=== PATIENT | female | born 1995 | race Caucasian/White ===

== ENCOUNTER 2021-10-21 18:00 | Outpatient (CLI) | payer OTHER, MEDICAID, SELFPAY ==
[2021-10-21 18:40] VITALS: BP 124/71
[2021-10-21 18:45] VITALS: BP 124/71; PULSE 116
[2021-10-21 18:49] LABS: Basophils Percent Auto 0.3 % (0.2-1.2); Eosinophils Absolute Auto 0.1 K/mm3 (0-0.3); Hematocrit 31.1 % (37.0-47.0); Hemoglobin 10.6 g/dL (12.0-15.0); Immature Granulocyte Absolute 0.08 K/mm3 (0.00-0.031); Immature Granulocyte Percent A 0.8 % (0-0.5); Immature Platelet Fraction Pct 6.8 % (0.9-11.2); Lymphocytes Absolute Auto 1.75 K/mm3 (0.9-3.2); Lymphocytes Percent Auto 17.7 % (18.3-44.2); Mean Corpuscular HGB Conc 34.1 g/dl (32-36); Mean Corpuscular Hemoglobin 31.5 pg (26-34); Mean Corpuscular Volume 92.6 fl (80-100); Mean Platelet Volume 10.4 fl (7.4-10.4); Monocytes Absolute Auto 0.8 K/mm3 (0.1-0.6); Monocytes Percent Auto 7.7 % (2.6-8.5); Neutrophils Absolute Auto 7.2 K/mm3 (1.3-6.7); Neutrophils Percent Auto 72.5 % (45.5-73.1); Platelet Count Result 153 k/mm3 (150-375); Red Blood Count 3.36 M/mm3 (4.2-5.4); Red Cell Distribution Width 12.3 % (11.5-14.5); White Blood Count 9.9 K/mm3 (4.5-10.0)
[2021-10-21 18:54] LABS: Add Urine Microscopic? YES; Amorphous Sediment Urine Few; Appearance Urine Cloudy (Clear); Bacteria Urine 3+ /hpf; Bilirubin Urine Negative (Negative); Blood Urine Negative (Negative); Color Urine Yellow (Yellow); Glucose Urine UA Negative (Negative); Ketones Urine Negative (Negative); Leukocyte Esterase Ur Negative LEU/UL (NEGATIVE); Mucus Urine Rare /lpf; Nitrate Urine Negative (Negative); Protein Urine Negative (Negative); Specific Grav Ur 1.017 (1.001-1.035); Squamous Epithelial Cell Urine Few /hpf (Few); Urobilinogen Urine Negative mg/dL (<2.0)
[2021-10-21 18:56] LABS: Alanine Aminotransferase 19 U/L (4-35); Albumin Level 3.8 g/dL (3.5-5.1); Alkaline Phosphatase 127 U/L (38-126); Anion Gap 10 mmol/L (8-16); Aspartate Amino Transferase 26 U/L (14-36); Bilirubin,Total 0.4 mg/dL (0.2-1.3); Blood Urea Nitrogen 5 mg/dL (7-17); Calcium 8.7 mg/dL (8.4-10.2); Carbon Dioxide 21 mmol/L (22-30); Chloride 106 mmol/L (98-107); Estimated Glomerular Filt Rate > 60; Glucose 124 mg/dL (65-110); Potassium 3.1 mmol/L (3.4-5.0); Sodium 137 mmol/L (137-145); Uric Acid 4.7 mg/dL (2.5-7.5)
[2021-10-21 19:00] VITALS: BP 118/71; PULSE 121
[2021-10-21 19:04] LABS: Creatinine Urine 135.8 mg/dL; Total Protein Urine Random 21 mg/dL; Ur Ttl Prot Creatinine Ratio 0.15 mg/mg (0-0.20)
[2021-10-21 19:15] VITALS: BP 112/71; PULSE 118
== END 2021-10-21 19:25 | disposition home or self-care (01) ==
LOC: ANHOBOP 18:10 → ANHOBPP 10-27 06:13
PROVIDERS: Visit Provider Obstetrics & Gynecology
DX: O13.9 Gestational [pregnancy-induced] hypertension without significant proteinuria, unspecified trimester (principal); Z3A.00 Weeks of gestation of pregnancy not specified; M79.89 Other specified soft tissue disorders
CPT/HCPCS: 36415; 59025; 80053; 81001; 82570; 84156; 84550; 85025; 85055; 87086; 99199

== ENCOUNTER 2021-10-31 14:32 | Observation (INO) | payer OTHER, MEDICAID, SELFPAY ==
[2021-10-31 16:03] VITALS: BMI 30.2
--- NOTE | 2021-10-31 16:03 | OBADM ---
This patient, Herminia Martínez, admitted to the OB room OB Post [facility] for observation. Patient/family oriented to hospital policies and general routines including ID bracelet, bed and alarms, visiting hours, pain management, procedures, bathroom and other care routines, personal items, smoking policy, room service/diet, and visiting hours. Patient/Family are encouraged to report perceived risks to care and to ask questions if they do not understand what they are told or what they should do.
--- NOTE | 2021-11-05 07:26 | P.PNOB_ITS ---
OB - Triage/Final Diagnosis Visit Information Date of evaluation: 10/31/21 Reason for evaluation: threatened labor Comments/Additional reasons for admission: I have assessed the risk for this patient, Herminia Davison Mauricio, and determined that she would benefit from obse rvation care.
== END 2021-10-31 16:07 | disposition home or self-care (01) ==
LOC: ANHOBPP 15:57
PROVIDERS: Admitting Provider Obstetrics & Gynecology; Visit Provider Obstetrics & Gynecology
DX: O47.1 False labor at or after 37 completed weeks of gestation (principal); Z3A.37 37 weeks gestation of pregnancy
CPT/HCPCS: G0378; G0379

== ENCOUNTER 2021-11-09 23:35 | Inpatient (IN) | payer OTHER, MEDICAID, SELFPAY ==
[2021-11-10] VITALS (199 sets, daily range): BP systolic 107–157; BP diastolic 57–132; PULSE 80–145; RESP 16; TEMP 36.1–37.4; O2SAT 97–100; BMI 29.9
--- NOTE | 2021-11-10 00:16 | WPDOBADMIT ---
Obstetrics - Admit Note Admission Note: record reviewed. No pertinent additions to the history and/or any subsequent changes in the physical findings that are not consistent with the expected course of the were found. Patient admitted for elective induction of labor. complicated by LGA. Patient declined section. Sterile vag exam 2.5/80/-1. AROM with small amount of clear odorless fluid. Vaginal delivery anticipated. Additions to the history and/or subsequent changes in the physical findings follow. None.
--- NOTE | 2021-11-10 00:22 | LDADM ---
This patient, Herminia Martínez, was admitted to Labor/Delivery/Recovery 107 on 11/09/21 at 23:35. Plans for labor, pain management and were discussed with patient. Patient/family oriented to hospital policies and general routines including ID bracelet, bed and alarms, visiting hours, pain management, procedures, bathroom and other care routines, personal items, smoking policy, room service/diet and guest tray routines, security routines, and visiting hours. Patient/Family are encouraged to report perceived risks to care and to ask questions if they do not understand what they are told or what they should do. See OBIX for further documentation.
[2021-11-10 00:29] LABS: Basophils Absolute Auto 0.1 K/mm3 (0.0-0.1); Basophils Percent Auto 0.4 % (0.2-1.2); Eosinophils Absolute Auto 0.2 K/mm3 (0-0.3); Eosinophils Percent Auto 1.3 % (0-4.4); Hemoglobin 11.3 g/dL (12.0-15.0); Immature Granulocyte Absolute 0.18 K/mm3 (0.00-0.031); Immature Granulocyte Percent A 1.5 % (0-0.5); Lymphocytes Absolute Auto 2.18 K/mm3 (0.9-3.2); Lymphocytes Percent Auto 17.9 % (18.3-44.2); Mean Corpuscular HGB Conc 34.2 g/dl (32-36); Mean Corpuscular Hemoglobin 31.4 pg (26-34); Mean Corpuscular Volume 91.7 fl (80-100); Mean Platelet Volume 10.7 fl (7.4-10.4); Monocytes Absolute Auto 1.2 K/mm3 (0.1-0.6); Monocytes Percent Auto 9.7 % (2.6-8.5); Neutrophils Absolute Auto 8.4 K/mm3 (1.3-6.7); Neutrophils Percent Auto 69.2 % (45.5-73.1); Platelet Count Result 152 k/mm3 (150-375); White Blood Count 12.2 K/mm3 (4.5-10.0)
[2021-11-10] MEDS: LACTATED RINGERS 1,000 ML 125 ML IV CONT ×3 (02:32→10:35)
--- NOTE | 2021-11-10 03:25 | P.PNAN_ITS ---
Anes - Eval Pre Procedure Procedure: LAbor epidural Date/Time: 11/10/21 03:25 Surgeon: Omid Preop Diagnosis: ABD pain with contractions Pre Op Diagnosis: Leaking Patient Data Age: 26 Gender: F Height: 1.63 m Weight: 79 kg Last Vital Signs Temp 98.4 F 11/10/21 02:10 Pulse 87 11/10/21 03:22 BP 122/71 11/10/21 03:22 Pulse Ox 99 11/10/21 03:21 Allergies Allergy/AdvReac Type Severity Reaction Status Date / Time No Known Allergies Allergy Verified 11/10/21 00:30 Home Medications Medication Instructions Recorded Confirmed Type PNV cmb#95-ferrous fumarate-FA 1 tablet PO DAILY 10/24/21 11/10/21 History [] Laboratory Tests 11/10/21 11/10/21 11/10/21 00:14 00:14 00:14 WBC 12.2 K/mm3 H K/mm3 (4.5-10.0) RBC 3.60 M/mm3 L M/mm3 (4.2-5.4) Hgb 11.3 g/dL L g/dL (12.0-15.0) Hct 33.0 % L % (37.0-47.0) MCV 91.7 fl fl (80-100) MCH 31.4 pg pg (26-34) MCHC 34.2 g/dl g/dl (32-36) RDW 13.0 % % (11.5-14.5) Plt Count 152 k/mm3 k/mm3 (150-375) MPV 10.7 fl H fl (7.4-10.4) Immature Gran % (Auto) 1.5 % H % (0-0.5) Neut % (Auto) 69.2 % % (45.5-73.1) Lymph % (Auto) 17.9 % L % (18.3-44.2) [place] % (Auto) 9.7 % H % (2.6-8.5) Eos % (Auto) 1.3 % % (0-4.4) Baso % (Auto) 0.4 % % (0.2-1.2) Lymph # (Auto) 2.18 K/mm3 K/mm3 (0.9-3.2) [place] # (Auto) 1.2 K/mm3 H K/mm3 (0.1-0.6) Eos # (Auto) 0.2 K/mm3 K/mm3 (0-0.3) Baso # (Auto) 0.1 K/mm3 K/mm3 (0.0-0.1) Abs Immat Gran (auto) 0.18 K/mm3 H K/mm3 (0.00-0.031) Absolute Neuts (auto) 8.4 K/mm3 H K/mm3 (1.3-6.7) Absolute Nucleated RBC 0.0 K/mm3 K/mm3 (0.0-0.012) Nucleated RBC % 0.0 % % (0.0-0.2) RPR Pending Blood Type O Positive Antibody Screen Negative Patient hx anesthesia problems: none Family hx anesthesia problems: none Results Review: All pre-operative results and documents have been reviewed as part of the pre-operative evaluation. [facility] Past Medical History Medical History Overweight (BMI 25.0-29.9) Family History Family History Grandparent Breast cancer Other Breast cancer Social History Social History Smoking status: Never smoker Second hand tobacco smoke exposure: No Substance use: never Spiritual care concerns: No Exam Day of Procedure 11/10/21 03:25 Patient weight: overweight Airway: Mallampati scale class II Neurological: alert and oriented
[2021-11-10] MEDS: ONDANSETRON INJ 4 MG/2 ML VIAL IV PUSH (04:06)
[2021-11-10] MEDS: OXYTOCIN 30 UNITS/NS 500 ML 30 UNITS/500 ML BAG IV CONT (07:30)
[2021-11-10 09:45] LABS: Rapid Plasma Reagin Non-Reactive (NonReactive)
--- NOTE | 2021-11-10 16:31 | PM.OBPRVD ---
OB - Delivery Note Procedure Delivery date: 11/10/21 Procedure: Vaginal delivery Events: Elective Induction of Labor Induction method: AROM and Per Pitocin Protocol Delivery monitor: External FHT and External Uterine Route of delivery: Laceration Description: Perineal - 1st Degree Delivery repair: vicryl Specimen: Yes Quantitative Blood Loss (ml): 210 Anesthesia type: Epidural Disposition: Floor [place] Baby Date of : 11/10/21 Time of : 16:08 Weeks of gestation at delivery: 39 gender: Male Weight (pounds): 8 Weight (ounces): 12 presentation: vertex position: Right Occiput Anterior Placenta delivery description: Spontaneous Cord Vessel Description: 3 Vessels, Clamped/Cut, Delayed Cord Clamping and Around Extremity (x1) score one minute: 8 score five minutes: 9 Narrative: mom and baby skin to skin in stable condition.
[2021-11-10] MEDS: OXYTOCIN 30 UNITS/NS 500 ML 30 UNITS/500 ML BAG 125 UNITS IV CONT (16:37)
[2021-11-10] MEDS: miSOPROStol 200 MCG TABLET 1000 MCG RECTAL (16:56)
[2021-11-10] MEDS: BENZOCAINE 20% AER SPR (*SP) 56 GM CAN 1 SPRAY TOPICAL (18:21)
[2021-11-10] MEDS: WITCH HAZEL 40 PADS 1 PAD TOPICAL (18:21)
[2021-11-10] MEDS: IBUPROFEN 600 MG TABLET PO (18:22)
[2021-11-10] MEDS: ACETAMINOPHEN 325 MG TABLET 650 MG PO (22:57)
[2021-11-11 04:35] VITALS: BP 118/71; PULSE 88; RESP 18; TEMP 36.7; O2SAT 98
[2021-11-11] MEDS: IBUPROFEN 600 MG TABLET PO ×2 (04:38→11:50)
[2021-11-11 05:03] LABS: Hemoglobin 9.2 g/dL (12.0-15.0)
[2021-11-11] MEDS: LANOLIN (LANSINOH) 7.5 GM CREAM 1 APPLIC TOPICAL (05:34)
--- NOTE | 2021-11-11 07:39 | P.PNOB_ITS ---
OB - PN: Subj Subjective Date/time seen: 11/11/21 07:39 Patient comments: no complaints and pain well controlled baby status: nursing well [place] feeding status: exclusively breast feeding OB - PN: Obj Data Labs CBC & Chem 7: 11/11/21 04:48 Labs: Laboratory Results - last 24 hr 11/10/21 11/11/21 00:14 04:48 Hgb 9.2 L Hct 27.0 L RPR Non-reactive OB - PN A/P Assessment and Plan (1) , delivered: Code(s): O80 - Encounter for full-term uncomplicated delivery Status: Acute Plan day: 1 Plan: routine care Comments: circ done after consented DC home tomorrow routine pp care. Time Spent With Patient Time: Total time spent is greater than 50% in coordination of care (as docume nted) at patient's floor/unit and/or counseling patient: Time with patient: less than 15 minutes Exam Narrative: NAD abdomen soft, nontender, fundus firm below the umbilicus Extremities nontender, 1+ edema
[2021-11-11 08:00] VITALS: BP 123/70; PULSE 97; PULSE 99; RESP 18; TEMP 36.1; O2SAT 99
[2021-11-11] MEDS: WITCH HAZEL 40 PADS 1 PAD TOPICAL (08:39)
[2021-11-11] MEDS: MULTIVIT/MIN/PREN/FOL AC/IRON TABLET 1 TAB PO (08:39)
[2021-11-11] MEDS: BENZOCAINE 20% AER SPR (*SP) 56 GM CAN 1 SPRAY TOPICAL (08:39)
[2021-11-11] MEDS: DOCUSATE SODIUM 100 MG CAPSULE PO ×2 (08:39→17:04)
[2021-11-11] MEDS: POLYSACCHARIDE IRON COMPLEX 150 MG CAPSULE PO ×2 (08:39→17:04)
--- NOTE | 2021-11-11 08:55 | WPDANLDPN2 ---
Anes-Prog Note L&D Date/Time: 11/11/21 08:55 Comfortable throughout: labor (right sided pain throughout, boluses ineffective) and delivery (pain throughout) Neuraxial method: epidural Epidural/Spinal procedure site: clean & non-tender Neuro status: Neuro function grossly intact. Cardiovascular status: normal Respiratory status: normal Airway patency: baseline Mental status: baseline Post-Op hydration status: normal Vital Signs: Last Vital Signs Temp 98.1 F 11/11/21 04:35 Pulse 88 11/11/21 04:35 Resp 18 11/11/21 04:35 BP 118/71 11/11/21 04:35 Pulse Ox 98 11/11/21 04:35 Pain score (VAS): 0 I/O: Intake & Output 11/10/21 11/11/21 11/11/21 23:59 07:59 15:59 Output Total 210 Balance -210 Post-procedural complaints: none Patient feedback: Despite poor pain coverage, patient satisfied with anesthetic care. Pt states didn't know what to expect . Both pt and pt's describe poor labor pain management.
--- NOTE | 2021-11-11 12:00 | PC.NURSE ---
Breast pump provided due to ineffective feeding. Instructions given on cleaning, care, usage, there should be no pain, pumping schedule for milk production, collection, and storage of human milk. Parents are encouraged to record pumping schedule on the blue sheet. Patient was assessed for correct placement, flange size, to pump for comfort and nipple stretching/stimulation for adequate milk production. Mother voiced understanding of the education shared. Reported to the primary RN.
[2021-11-11 12:30] VITALS: BP 107/63; PULSE 90; RESP 16; TEMP 36.6; O2SAT 99
[2021-11-11 16:00] VITALS: BP 108/60; PULSE 89; RESP 20; TEMP 36.8
--- NOTE | 2021-11-11 17:17 | PC.NURSE ---
Nipple shield provided to mother due to poor latch. Reviewed good handwashing, cleaning the nipple shield and application. Discussed with mom the nipple shield precautions, possible complications associated with the risks and benefits. Reviewed practicing with a nipple shield, then without and how to protect the milk supply and production. Mom and baby guide referred to as a resource for using a nipple shield, out-patient services, community resources and when to call a provider. Mom voiced understanding of the importance of hand expression, nipple stimulation and initiating a pumping schedule if continues to nurse with the shield. Reported to the primary RN.
[2021-11-11 19:45] VITALS: BP 118/71; PULSE 87; RESP 16; TEMP 36.7
--- NOTE | 2021-11-12 07:17 | PM.OBPNVD ---
OB - PN: Subj Subjective Date/time seen: 11/12/21 07:17 Patient comments: no complaints baby status: doing well OB - PN: Obj Data Labs CBC & Chem 7: 11/11/21 04:48 OB - PN A/P Plan day: 2 Plan: routine care and discharge home Time Spent With Patient Time: Total time spent is greater than 50% in coordination of care (as documented) at patient's floor/unit and/or counseling patient: Review of Systems Review of Systems: All systems reviewed & are unremarkable except as noted in HPI and below Exam Const: General: cooperative, healthy appearing and comfortable
--- NOTE | 2021-11-12 07:18 | P.DS_ITS ---
DS: Admitting Diagnosis Discharge Date 11/12/21 Admitting Diagnosis IOL, LGA OB - DS: Summary OB Procedures : None OB Procedures Intrapartum: Spontaneous Vag Delivery OB Procedures: : None Time Spent with Patient Time attestation: Total time spent providing and/or coordinating discharge services: DS: Data Data Completed and Pending Pending studies at discharge: Pending at discharge 11/10/21 16:13 Surgical [PTH] Routine Discharge Plan Discharge Attending physician on discharge: Katherine Anne Discharging Clinician: Maria Isabel Patel Patient Disposition: Home, Self-Care Activity: pelvic rest Diet: regular Patient Instructions: Antibiotic Form Stand Alone Forms: General Discharge Information Follow-up/Referrals: Maria Isabel Patel, CNM [Certified Nurse Software Quality Manager] - 4 Weeks Discharge Medications: Continued PNV cmb#95-ferrous fumarate-FA [] 28 mg iron- 800 mcg Tablet 1 tablet PO DAILY RF: 0 Date of admission: 11/09/21 23:35 Primary Care Provider: PHYSICIAN NOT ON STAFF,NONSTAFF Admitting Provider: Katherine Anne Attending physician on admission: Katherine Anne Condition: Stable
[2021-11-12 08:00] VITALS: BP 119/78; PULSE 93; RESP 18; TEMP 36.8
[2021-11-12] MEDS: WITCH HAZEL 40 PADS 1 PAD TOPICAL (08:51)
[2021-11-12] MEDS: MULTIVIT/MIN/PREN/FOL AC/IRON TABLET 1 TAB PO (08:51)
[2021-11-12] MEDS: DOCUSATE SODIUM 100 MG CAPSULE PO (08:51)
[2021-11-12] MEDS: BENZOCAINE 20% AER SPR (*SP) 56 GM CAN 1 SPRAY TOPICAL (08:51)
[2021-11-12] MEDS: IBUPROFEN 600 MG TABLET PO (08:51)
[2021-11-12] MEDS: POLYSACCHARIDE IRON COMPLEX 150 MG CAPSULE PO (08:51)
--- NOTE | 2021-11-12 09:40 | PC.NURSE ---
Self care and infant care discharge instructions given including follow up visit date and time. Very pleasant and cooperative. No questions or concerns voiced. FOB at side.
--- NOTE | 2021-11-12 12:52 | PC.NURSE ---
[id number] Mother led the conversation with her experience and plan to feed her so far and her ability to continue with a feeding plan set in place prior to this shift. She is attempting to latch sometimes with a nipple shield and not. She is pumping for stimulating milk production and supplementing. Reminded parents to use good handwashing technique to prevent infection. Mother is feeding appropriately for growth of and understands stimulating infant to eat if needed. has had appropriate feedings in the last 24 hours meets the outcomes for weight, output and jaundice at this time. Mother states she is confident to continue to attempt at /pumping/supplementing her infant at home or when to call for assistance and denies any additional assistance or education at this time. Reinforced understanding of milk production, transition of milk, signs of adequate intake, prevention/relief of engorgement, responsive after visualizing feeding cues, the different methods of stimulating to breastfeed 2-3 hours after the start of the last feeding, community resources, medication information reviewed per [employer] and when to call a provider using the resource of the mom and baby guide/[facility] website. Mother voiced understanding of the education shared. Reported to the primary RN.
[2021-11-13 10:49] VITALS: BP 138/72; PULSE 94; RESP 20; TEMP 36.7; O2SAT 100
== END 2021-11-12 13:50 | disposition home or self-care (01) | DRG 807 ==
LOC: ANHLDR 23:54 → ANHOB2 11-10 19:48
PROVIDERS: Advanced Practice Midwife; Admitting Provider Obstetrics & Gynecology; Visit Provider Obstetrics & Gynecology
DX: O36.63X0 Maternal care for excessive fetal growth, third trimester, not applicable or unspecified (principal); Z37.0 Single live birth; Z3A.39 39 weeks gestation of pregnancy; O70.0 First degree perineal laceration during delivery; O69.2XX0 Labor and delivery complicated by other cord entanglement, with compression, not applicable or unspecified
CPT/HCPCS: 36415; 85014; 85018; 85025; 86592; 86850; 86900; 86901; 88307; A9270; J2405; J2590; J2795; J7120

== ENCOUNTER 2021-11-15 08:33 | Outpatient (CLI) | payer OTHER, MEDICAID, SELFPAY ==
[2021-11-15 08:56] VITALS: BP 129/91; PULSE 95
[2021-11-15 09:00] VITALS: BP 124/91; PULSE 99
[2021-11-15 09:11] LABS: Basophils Absolute Auto 0.1 K/mm3 (0.0-0.1); Basophils Percent Auto 0.5 % (0.2-1.2); Eosinophils Absolute Auto 0.4 K/mm3 (0-0.3); Eosinophils Percent Auto 3.1 % (0-4.4); Hematocrit 31.4 % (37.0-47.0); Hemoglobin 10.6 g/dL (12.0-15.0); Immature Granulocyte Absolute 0.23 K/mm3 (0.00-0.031); Immature Granulocyte Percent A 1.8 % (0-0.5); Lymphocytes Absolute Auto 1.85 K/mm3 (0.9-3.2); Lymphocytes Percent Auto 14.1 % (18.3-44.2); Mean Corpuscular HGB Conc 33.8 g/dl (32-36); Mean Corpuscular Hemoglobin 31.1 pg (26-34); Mean Corpuscular Volume 92.1 fl (80-100); Mean Platelet Volume 9.2 fl (7.4-10.4); Monocytes Absolute Auto 0.8 K/mm3 (0.1-0.6); Monocytes Percent Auto 5.7 % (2.6-8.5); Neutrophils Absolute Auto 9.8 K/mm3 (1.3-6.7); Neutrophils Percent Auto 74.8 % (45.5-73.1); Platelet Count Result 168 k/mm3 (150-375); Red Blood Count 3.41 M/mm3 (4.2-5.4); Red Cell Distribution Width 12.8 % (11.5-14.5); White Blood Count 13.1 K/mm3 (4.5-10.0)
[2021-11-15 09:15] VITALS: BP 130/81; PULSE 88
[2021-11-15 09:21] LABS: Alanine Aminotransferase 46 U/L (6-35); Albumin Level 4.1 g/dL (3.5-5.1); Alkaline Phosphatase 110 U/L (38-126); Anion Gap 8 mmol/L (8-16); Aspartate Amino Transferase 66 U/L (14-36); Bilirubin,Total 0.3 mg/dL (0.2-1.3); Blood Urea Nitrogen 9 mg/dL (7-17); Calcium 9.6 mg/dL (8.4-10.2); Carbon Dioxide 26 mmol/L (22-30); Chloride 103 mmol/L (98-107); Estimated Glomerular Filt Rate > 60; Glucose 93 mg/dL (65-110); Potassium 3.9 mmol/L (3.4-5.0); Sodium 137 mmol/L (137-145); Uric Acid 6.5 mg/dL (2.5-7.5)
[2021-11-15 09:30] VITALS: BP 128/91; PULSE 91
--- NOTE | 2021-11-15 09:35 | PC.NURSE ---
Called Dr. Anne with lab results and BPs. Pt complaining of headache since Wednesday, with no relief from Tylenol, dizziness when closing eyes to go to sleep, seeing spots, and states that her arms feel like they need to be stretched. Pt has not taken Tylenol since yesterday morning. States that her pain is a 7 on 1-10 scale, but states that it is just discomfort. May D/C home to follow up in office on Wednesday. Call with any changes.
== END 2021-11-15 10:00 | disposition home or self-care (01) ==
LOC: ANHOBOP 08:39 → ANHOBPP 11-20 06:36
PROVIDERS: Obstetrics & Gynecology; Visit Provider Advanced Practice Midwife
DX: O13.9 Gestational [pregnancy-induced] hypertension without significant proteinuria, unspecified trimester (principal); Z3A.00 Weeks of gestation of pregnancy not specified
CPT/HCPCS: 36415; 80053; 84550; 85025; 99199